=== PATIENT | male | born 1940 | race Caucasian/White ===

== ENCOUNTER 2024-04-10 05:59 | Outpatient (REF) | payer MEDICARE, SELFPAY ==
[2024-04-10 06:33] LABS: MANUAL DIFF FLAG NO
[2024-04-10 07:05] LABS: Basophils Percent Auto 0.6 % (0-2); Eosinophils Absolute Auto 0.1 X10*3/uL (0.0-0.4); Eosinophils Percent Auto 2.6 % (0-4); Hemoglobin 10.4 g/dl (14.0-18.0); Imm Gran Abs Auto 0.01 X10*3/uL (0.00-0.03); Imm Gran Pct Auto 0.2 % (0.0-0.4); Lymphocytes Absolute Auto 1.3 X10*3/uL (1.2-4.9); Mean Corpuscular HGB Conc 32.5 g/dl (31.0-36.0); Mean Corpuscular Hemoglobin 30.1 pg (27.0-33.0); Mean Corpuscular Volume 92.8 fL (80.0-98.0); Mean Platelet Volume 9.9 fL (9.4-12.4); Monocytes Absolute Auto 0.4 X10*3/uL (0.1-1.2); Monocytes Percent Auto 8.6 % (2-11); Neutrophils Absolute Auto 3.2 x10*3/uL (2.0-8.3); Platelet Count 141 X10*3/uL (160-400); Red Blood Count 3.45 X10*6/uL (4.60-5.80); Red Cell Distribution Width 13.2 % (11.0-16.0)
[2024-04-10 07:09] LABS: Alanine Aminotransferase 9 U/L (0-40); Albumin Level 3.6 g/dL (3.5-5.0); Alkaline Phosphatase 57 U/L (39-117); Anion Gap 9 (12-20); Aspartate Amino Transferase 15 U/L (5-37); Bilirubin Total 0.4 mg/dL (0.0-1.0); Blood Urea Nitrogen 23 mg/dL (9-16); Calcium 8.9 mg/dL (8.4-10.2); Carbon Dioxide 28 mmol/L (22-29); Chloride 108 mmol/L (96-108); Cholesterol 167 mg/dL (<200); Estimated Glomerular Filt Rate > 60; Glucose Random 97 mg/dL (60-115); HDL Cholesterol 46 mg/dL (>40); LDL Cholesterol Calculated 107 mg/dL (<100); Sodium 141 mmol/L (135-145); Total Protein 5.9 g/dL (6.5-8.0); Triglycerides 73 mg/dL (<150)
[2024-04-10 07:25] LABS: Prostate Specific Antigen Scr 1.77 ng/mL (<0.05-4.0)
[2024-04-10 07:26] LABS: Thyroid Stimulating Hormone 1.46 uIU/mL (0.32-4.0)
[2024-04-16 12:49] LABS: Vitamin D 25-OH, D2 <4 ng/mL; Vitamin D 25-OH, D3 17 ng/mL; Vitamin D 25-OH, Total 17 ng/mL (30-100)
== END 2024-04-10 06:00 | disposition home or self-care (01) ==
LOC: HO.HSH2N 05:59
PROVIDERS: Internal Medicine Interventional Cardiology; Visit Provider Internal Medicine
DX: Z02.2 Encounter for examination for admission to residential institution (principal); Z12.5 Encounter for screening for malignant neoplasm of prostate; I10 Essential (primary) hypertension
CPT/HCPCS: 36415; 80053; 80061; 82306; 84153; 84443; 85025

== ENCOUNTER 2024-04-20 11:46 | Outpatient (REF) | payer MEDICARE, SELFPAY ==
[2024-04-20 11:58] LABS: OBS Int Ctl Valid YES; OBS1 NEGATIVE (NEGATIVE)
== END 2024-04-20 11:47 | disposition home or self-care (01) ==
LOC: HO.HSH2N 11:46
PROVIDERS: Visit Provider Internal Medicine Interventional Cardiology
DX: D64.9 Anemia, unspecified (principal)
CPT/HCPCS: 82272

== ENCOUNTER 2024-04-22 06:02 | Outpatient (REF) | payer MEDICARE, SELFPAY ==
[2024-04-22 06:35] LABS: Iron 73 mcg/dL (45-160); Percent Iron Saturation 31 % (15-50); Total Iron Binding Capacity 238 mcg/dL (228-428); Unsaturated Iron Binding 165 ug/dL
[2024-04-22 07:10] LABS: Folate 4.3 ng/mL (> or = 4.0); Vitamin B12 621 pg/mL (200-900)
== END 2024-04-22 06:03 | disposition home or self-care (01) ==
LOC: HO.HSH2N 06:02
PROVIDERS: Visit Provider Internal Medicine Interventional Cardiology
DX: D64.9 Anemia, unspecified (principal)
CPT/HCPCS: 36415; 82607; 82746; 83540

== ENCOUNTER 2024-08-31 13:46 | Outpatient (REF) | payer MEDICARE, SELFPAY ==
[2024-08-31 13:54] LABS: MANUAL DIFF FLAG NO
[2024-08-31 13:57] LABS: Basophils Percent Auto 0.5 % (0-2); Eosinophils Absolute Auto 0.1 X10*3/uL (0.0-0.4); Eosinophils Percent Auto 1.9 % (0-4); Hematocrit 35.2 % (42.0-52.0); Hemoglobin 11.6 g/dl (14.0-18.0); Imm Gran Abs Auto 0.03 X10*3/uL (0.00-0.03); Imm Gran Pct Auto 0.5 % (0.0-0.4); Lymphocytes Absolute Auto 1.4 X10*3/uL (1.2-4.9); Lymphocytes Percent Auto 20.8 % (20-40); Mean Platelet Volume 9.6 fL (9.4-12.4); Monocytes Absolute Auto 0.5 X10*3/uL (0.1-1.2); Monocytes Percent Auto 8.2 % (2-11); Neutrophils Absolute Auto 4.4 x10*3/uL (2.0-8.3); Neutrophils Percent Auto 68.1 % (45-73); Platelet Count 181 X10*3/uL (160-400); Red Blood Count 3.87 X10*6/uL (4.60-5.80); Red Cell Distribution Width 13.2 % (11.0-16.0); White Blood Count 6.5 X10*3/uL (4.8-10.8)
[2024-08-31 14:07] LABS: Estimated Average Glucose 117 mg/dL; Hemoglobin A1C 118.2766 umol/L; Hemoglobin A1c % 5.7 % (<6.0)
[2024-08-31 14:20] LABS: Alanine Aminotransferase 61 U/L (0-40); Albumin Level 3.7 g/dL (3.5-5.0); Anion Gap 11 (12-20); Aspartate Amino Transferase 33 U/L (5-37); Bilirubin Total 0.3 mg/dL (0.0-1.0); Blood Urea Nitrogen 29 mg/dL (9-16); Calcium 9.1 mg/dL (8.4-10.2); Carbon Dioxide 27 mmol/L (22-29); Chloride 105 mmol/L (96-108); Estimated Glomerular Filt Rate > 60; Glucose Random 109 mg/dL (60-115); Potassium 4.1 mmol/L (3.3-5.1); Sodium 139 mmol/L (135-145)
[2024-08-31 14:31] LABS: Alkaline Phosphatase 74 U/L (39-117)
== END 2024-08-31 13:47 | disposition home or self-care (01) ==
LOC: HO.HSH2E 13:46
PROVIDERS: Visit Provider Nurse Practitioner Acute Care
DX: R41.82 Altered mental status, unspecified (principal); Z13.1 Encounter for screening for diabetes mellitus; D64.9 Anemia, unspecified
CPT/HCPCS: 36415; 80053; 83036; 85025

== ENCOUNTER 2024-12-29 07:01 | Outpatient (REF) | payer MEDICARE, SELFPAY ==
[2024-12-29 07:03] LABS: MANUAL DIFF FLAG NO
[2024-12-29 07:29] LABS: Hematocrit 35.0 % (42.0-52.0); Hemoglobin 11.4 g/dl (14.0-18.0); Imm Gran Abs Auto 0.05 X10*3/uL (0.00-0.03); Imm Gran Pct Auto 0.9 % (0.0-0.4); Lymphocytes Absolute Auto 1.3 X10*3/uL (1.2-4.9); Mean Corpuscular HGB Conc 32.6 g/dl (31.0-36.0); Mean Corpuscular Hemoglobin 29.8 pg (27.0-33.0); Mean Corpuscular Volume 91.4 fL (80.0-98.0); NRBC Abs Auto 0.000 X10*3/uL (0.0-0.012); NRBC Pct Auto 0.0 /100WBC (0.0-0.2); Platelet Count 187 X10*3/uL (160-400); Red Blood Count 3.83 X10*6/uL (4.60-5.80); White Blood Count 5.5 X10*3/uL (4.8-10.8)
[2024-12-29 07:39] LABS: Anion Gap 11 (12-20); Blood Urea Nitrogen 24 mg/dL (9-16); Calcium 8.6 mg/dL (8.4-10.2); Carbon Dioxide 26 mmol/L (22-29); Chloride 107 mmol/L (96-108); Estimated Glomerular Filt Rate > 60; Potassium 4.0 mmol/L (3.3-5.1); Sodium 140 mmol/L (135-145)
== END 2024-12-29 07:02 | disposition home or self-care (01) ==
LOC: HO.HSH2N 07:01
PROVIDERS: Nurse Practitioner; Visit Provider Internal Medicine Interventional Cardiology
DX: R53.1 Weakness (principal); F03.90 Unspecified dementia, unspecified severity, without behavioral disturbance, psychotic disturbance, mood disturbance, and anxiety
CPT/HCPCS: 36415; 80048; 85025

== ENCOUNTER 2025-01-12 07:05 | Outpatient (REF) | payer MEDICARE, SELFPAY ==
[2025-01-12 07:09] LABS: MANUAL DIFF FLAG NO
[2025-01-12 07:18] LABS: Hematocrit 35.5 % (42.0-52.0); Hemoglobin 11.5 g/dl (14.0-18.0); Imm Gran Abs Auto 0.04 X10*3/uL (0.00-0.03); Imm Gran Pct Auto 0.6 % (0.0-0.4); Lymphocytes Absolute Auto 1.4 X10*3/uL (1.2-4.9); Mean Corpuscular HGB Conc 32.4 g/dl (31.0-36.0); Mean Corpuscular Hemoglobin 29.9 pg (27.0-33.0); Mean Corpuscular Volume 92.4 fL (80.0-98.0); NRBC Abs Auto 0.000 X10*3/uL (0.0-0.012); NRBC Pct Auto 0.0 /100WBC (0.0-0.2); Platelet Count 190 X10*3/uL (160-400); Red Blood Count 3.84 X10*6/uL (4.60-5.80); White Blood Count 6.5 X10*3/uL (4.8-10.8)
[2025-01-12 07:37] LABS: B Type Natriuretic Peptide 31 pg/mL (<100)
== END 2025-01-12 07:06 | disposition home or self-care (01) ==
LOC: HO.HSH2N 07:05
PROVIDERS: Internal Medicine Interventional Cardiology
DX: I50.9 Heart failure, unspecified (principal)
CPT/HCPCS: 36415; 83880; 85025

== ENCOUNTER 2025-02-09 06:08 | Outpatient (REF) | payer MEDICARE, SELFPAY ==
[2025-02-09 06:37] LABS: Anion Gap 14 (12-20); Blood Urea Nitrogen 32 mg/dL (9-16); Calcium 9.1 mg/dL (8.4-10.2); Carbon Dioxide 29 mmol/L (22-29); Chloride 102 mmol/L (96-108); Estimated Glomerular Filt Rate > 60; Potassium 3.9 mmol/L (3.3-5.1); Sodium 141 mmol/L (135-145)
== END 2025-02-09 06:09 | disposition home or self-care (01) ==
LOC: HO.HSH2N 06:08
PROVIDERS: Visit Provider Internal Medicine Interventional Cardiology
DX: I10 Essential (primary) hypertension (principal)
CPT/HCPCS: 36415; 80048

== ENCOUNTER 2025-03-11 09:45 | Outpatient (AMB) | payer MEDICARE, SELFPAY ==
--- NOTE | 2025-03-11 10:33 | A.OFFVIS_ITS ---
Intake Visit Reasons: 6 Months [facility] [phone] Allergies No Known Allergies Allergy (Verified 03/05/25 08:45) HPI Comments Details: 84 years old right-handed man, a retired police communications operator, started having symptoms of dementia in 2019. I initially saw him in 2023. He has been diagnosed with dementia with Lewy body disease. He is doing ok. No new issues. Family was with him reporting that he was doing all right except that recently he gained some weight and blood pressure was high and he was prescribed hydrochlorothiazide after which she was feeling better. [facility] Medical History (Updated 03/11/25 @ 10:36 by Mele Cummings MD) Dementia with Lewy bodies Review of Systems Const Details: Started a new med for BP. Gained some weight. Physical Exam Neuro Other: He is alert and awake comfortably sitting make an eye contact and answering questions. Assessment & Plan Assessment & Plan (1) Dementia with Lewy bodies: Comment: MRI brain WWO at [facility] in Jun 2021: Mild to mod atrophy, mild MVD CTA brain and neck at [facility] in Jul 2023: OK. Code(s): G31.83 - Neurocognitive disorder with Lewy bodies; F02.80 - Dementia in other diseases classified elsewhere, unspecified severity, without behavioral disturbance, psychotic disturbance, mood disturbance, and anxiety Category: Medical Qualifiers: Dementia severity: moderate Dementia behavioral or psychological symptom: with other behavioral disturbance Qualified Code(s): G31.83 - Ne urocognitive disorder with Lewy bodies; F02.B18 - Dementia in other diseases classified elsewhere, moderate, with other behavioral disturbance Plan Impression: Dementia with Lewy body disease, stable for now Medications: New memantine 10 mg PO BID 180 tabs 1RF quetiapine 25 mg PO BID 180 tabs 1RF sertraline 100 mg PO DAILY 90 tabs 1RF quetiapine 50 mg PO BEDTIME 90 tabs 1RF rivastigmine 4.6 mg topical DAILY 90 ea 1RF Coding Level of Care Code Tele New Pt Level 4 (68216) Diagnoses Moderate Lewy body dementia with other behavioral disturbance G31.83; F02.B18 Dementia severity: moderate Dementia behavioral or psychological symptom: with other behavioral disturbance
--- OUTSIDE RECORDS SUMMARY | 2025-03-11 11:33 | XMS_ITS | Clinical Summary ---
Author Organization [employer] Address [address] [place] [address] Care Team Providers Care Cnc Specialist Name Role Phone Unavailable Primary Care Provider Unavailabl e Allergies Active Allergy Reactions Criticality Noted Date Comments Donepezil 06/04/2024 Gabapentin 06/04/2024 Medications atorvastatin (Lipitor) 10 MG tablet Take 10 mg by mouth Once per day. Active alendronate-cho lecalciferol (Fosamax Plus D) 70-5600 MG-UNIT tablet Take 1 tablet by mouth every 7 (seven) days. Take in the morning with a full glass of water, on an empty stomach, and do not take anything else by mouth or lie down for the next 30 min. Active risperiDONE (RisperDAL) 0.25 MG tablet Take 0.25 mg by mouth Once per day. Active sertraline (Zoloft) 100 MG tablet Take by mouth. Activ e QUEtiapine (SEROquel) 50 MG tablet Take 75 mg by mouth at bedtime. Active docusate sodium (Colace) 100 MG capsule Take 100 mg by mouth 2 times daily. Active rivastigmine (Exelon) 4.6 MG/24HR Place 1 patch on the skin Once per day. Active Multiple Vitamin (multivitamin) tablet Take 1 tablet by mouth Once per day. Active losartan-hydroC HLOROthiazide (Hyzaar) 100-12.5 MG tablet Take 1 tablet by mouth Once per day. Active memantine (Namenda) 10 MG tablet Take 10 mg by mouth 2 times daily. Active cyanocobalamin (Vitamin B-12) 1000 MCG tablet Take 1,000 mcg by mouth Once per day. Active finasteride (Proscar) 5 MG tablet Take 5 mg by mouth Once per day. Do not crush, chew, or split. Active acetaminophen (Tylenol) 325 MG tablet Take 325 mg by mouth every 4 (four) hours if needed for mild pain. Active Dutasteride-Reza sulosin HCl 0.5-0.4 MG capsule Take 0.04 mg by mouth Once per day. Active albuterol (2.5 MG/3ML) 0.083% nebulizer solution Take by nebulization every 6 (six) hours if needed for wheezing. Active tamsulosin (Flomax) 0.4 MG 24 hr capsule Take 0.4 mg by mouth Once per day. Active ibuprofen 400 MG tablet Take 400 mg by mouth after breakfast and after evening meal. Active Active Problems Problem Noted Date Diagnosed Date Hypertension 06/04/2024 Benign prostatic hyperplasia 06/04/2024 Hyperlipidemia 06/04/2024 Anemia 06/04/2024 Encounters Date Type Department Care Team Description 12/10/2024 8:00 AM EDT Office Visit [facility] [address] [place] [id number] Cindy Abarca Dental calculus (Primary Dx); Dental plaque from Last 3 Months Social History Tobacco Use Types Packs/Day Years Used Date Smoking Tobacco: Unknown Tobacco Cessation:Counseling Given: Not Answered Alcohol Use Standard Drinks/Week Comments Defer 0 (1 standard drink = 0.6 oz pur e alcohol) Sex and Gender Information Value Date Recorded Sex Assigned at Male 04/22/2024 9:35 AM EDT Legal Sex Male 9:34 AM EDT Gender Identity Male 04/22/2024 9:35 AM EDT Sexual Orientation Straight 04/22/2024 9: 35 AM EDT Last Filed Vital Signs Vital Sign Reading Time Taken Comments Blood Pressure 118/76 12/10/2024 8:54 AM EDT Pulse - - Temperature - - Respiratory Rate - - Oxygen Saturation - - Inhaled Oxygen Concentration - - Weight - - Height - - Body Mass Index - - Plan of Treatment Health Maintenance Due Date Last Done Comments Depression Screening 1942 Lipid Panel 1942 SDOH Screening 1942 Alcohol/Substance Use Screening 1954 DTaP/Tdap/Td Vaccines (1 - Tdap) 1961 Pneumococcal Vaccine: 50+ Years (1 of 1 - PCV) 1992 Zoster Vaccines (1 of 2) 1992 RSV Patients and Patients Aged 60 years or older (1 - 1-dose 75+ series) 2017 COVID-19 Vaccine (2023-2 5 season) 2025 Influenza Vaccine (#1) 2025 Dental Oral Exam 06/05/2025 12/03/2024, 06/04/2024 Dental Prophylaxis 06/12/2025 12/10/2024, 09/11/2024, 06/11/2024 Dental X-Ray: Bitewings 12/04/2025 12/04/19, 06/04/2024 Tobacco Screening 12/10/2025 12/10/2024 Dental X-Ray: Full Mouth 06/05/2027 06/04/2024 HIB Vaccines Aged Out No longer eligi ble based on patient's age to complete this topic HPV Vaccines Aged Out No longer eligi ble based on patient's age to complete this topic Hepatitis A Vaccines Aged Out No long er eligible based on patient's age to complete this topic Hepatitis B Vaccines Aged Out No long er eligible based on patient's age to complete this topic IPV Vaccines Aged Out No longer eligi ble based on patient's age to complete this topic Meningococcal B Vaccine Aged Out No l onger eligible based on patient's age to complete this topic Meningococcal Vaccine Aged Out No letha jeremy eligible based on patient's age to complete this topic RSV under 20 months Aged Out No longe r eligible based on patient's age to complete this topic Rotavirus Vaccines Aged Out No longer eligible based on patient's age to complete this topic Procedures Procedure Name Priority Date/Time Associated Diagnosis Comments TOPICAL APPLICATION OF FLUORIDE VARNISH Routine 12/10/2024 8:00 AM EDT PROPHYLAXIS - ADULT Routine 12/10/2024 8 :00 AM EDT Dental calculus Dental plaque BITEWINGS - 4 RADIOGRAPHIC IMAGES Routine 12/03/2024 10:30 AM EDT PERIODIC ORAL EVALUATION - ESTABLISHED PATIENT Routine 12/03/2024 10:30 AM EDT INTRAORAL - COMPLETE SERIES OF RADIOGRAPHIC IMAGES Routine 06/04/2024 8:00 AM EST from Last 3 Months or Most Recently Relevant to Health Maintenance
== END 2025-03-11 15:11 | disposition home or self-care (01) ==
LOC: HO.HSM 09:46
PROVIDERS: PCP Family Medicine; Referring Provider Family Medicine; Visit Provider Psychiatry & Neurology Neurology
DX: G31.83 Neurocognitive disorder with Lewy bodies (principal); F02.B18 Dementia in other diseases classified elsewhere, moderate, with other behavioral disturbance
CPT/HCPCS: 99214

== ENCOUNTER → 2025-03-11 09:45 | Outpatient (BNVA) | payer MEDICARE, SELFPAY | PROVIDERS: PCP Family Medicine; Referring Provider Family Medicine; Visit Provider Psychiatry & Neurology Neurology | DX: G31.83 Neurocognitive disorder with Lewy bodies (principal); F02.B18 Dementia in other diseases classified elsewhere, moderate, with other behavioral disturbance | CPT/HCPCS: 99212 ==

== ENCOUNTER 2025-05-01 05:49 | Outpatient (REF) | payer MEDICARE, SELFPAY ==
[2025-05-01 05:53] LABS: MANUAL DIFF FLAG NO
--- OUTSIDE RECORDS SUMMARY | 2025-05-01 05:53 | XMS_ITS | Clinical Summary ---
Author Organization [employer] Address [address] [facility] [address] [place] [address] Care Team Providers Care Direct Entry Midwife Name Role Phone Unavailable Primary Care Provider [...] after breakfast and after evening meal. Active lactulose (Chronulac) 10 GM/15ML solution Take 20 g by mouth 3 times daily. Active Active Problems Problem Noted Date Diagnosed Date Hypertension 06/04/2024 Benign prostatic hyperplasia 06/04/2024 Hyperlipidemia 06/04/2024 Anemia 06/04/2024 Encounters Date Type Department Care Team Description 04/01/2025 11:00 AM EDT Office Visit [facility] [address] [place] [id number] Harley Madrigal DMD from Last 3 Months Social History Tobacco [...] season) 2025 Influenza Vaccine (#1) 2025 Dental Prophylaxis 06/12/2025 12/10/2024, 09/11/2024, 06/11/2024 Dental Oral Exam 10/01/2025 04/01/2025, 12/03/2024, 06/04/2024 Dental X-Ray: Bitewings 12/04/2025 12/04/19 25, 06/04/2024 Tobacco Screening 04/01/2026 04/01/2025 Dental X-Ray: Full Mouth 06/05/2027 06/04/2024 HIB [...] Procedure Name Priority Date/Time Associated Diagnosis Comments PERIODIC ORAL EVALUATION - ESTABLISHED PATIENT Routine 04/01/2025 11:00 AM EDT PROPHYLAXIS - ADULT Routine 12/10/2024 8 :00 AM EDT Dental calculus Dental plaque BITEWINGS - 4 RADIOGRAPHIC IMAGES Routine 12/03/2024 10:30 AM EDT INTRAORAL - COMPLETE SERIES OF RADIOGRAPHIC IMAGES Routine 06/04/2024 8:00 AM EST from Last 3 Months or Most Recently Relevant to Health Maintenance
[2025-05-01 06:16] LABS: Hematocrit 32.3 % (42.0-52.0); Hemoglobin 10.2 g/dl (14.0-18.0); Imm Gran Abs Auto 0.02 X10*3/uL (0.00-0.03); Imm Gran Pct Auto 0.3 % (0.0-0.4); Lymphocytes Absolute Auto 1.3 X10*3/uL (1.2-4.9); Mean Corpuscular HGB Conc 31.6 g/dl (31.0-36.0); Mean Corpuscular Hemoglobin 28.9 pg (27.0-33.0); Mean Corpuscular Volume 91.5 fL (80.0-98.0); NRBC Abs Auto 0.000 X10*3/uL (0.0-0.012); NRBC Pct Auto 0.0 /100WBC (0.0-0.2); Platelet Count 182 X10*3/uL (160-400); Red Blood Count 3.53 X10*6/uL (4.60-5.80); White Blood Count 5.7 X10*3/uL (4.8-10.8)
[2025-05-01 06:47] LABS: Alanine Aminotransferase 17 U/L (0-40); Albumin Level 3.5 g/dL (3.5-5.0); Alkaline Phosphatase 64 U/L (39-117); Anion Gap 10 (12-20); Aspartate Amino Transferase 21 U/L (5-37); Blood Urea Nitrogen 31 mg/dL (9-16); Calcium 8.5 mg/dL (8.4-10.2); Carbon Dioxide 30 mmol/L (22-29); Chloride 106 mmol/L (96-108); Cholesterol 149 mg/dL (<200); Estimated Glomerular Filt Rate > 60; HDL Cholesterol 34 mg/dL (>40); Potassium 3.6 mmol/L (3.3-5.1); Sodium 142 mmol/L (135-145); Total Protein 6.1 g/dL (6.5-8.0); Triglycerides 96 mg/dL (<150)
[2025-05-01 07:01] LABS: Thyroid Stimulating Hormone 0.92 uIU/mL (0.32-4.0)
[2025-05-01 07:11] LABS: Vitamin B12 606 pg/mL (200-900)
== END 2025-05-01 05:50 | disposition home or self-care (01) ==
LOC: HO.HSH2N 05:49
PROVIDERS: Visit Provider Internal Medicine Interventional Cardiology
DX: Z13.6 Encounter for screening for cardiovascular disorders (principal); Z13.29 Encounter for screening for other suspected endocrine disorder
CPT/HCPCS: 36415; 80053; 80061; 82306; 82607; 84443; 85025